=== PATIENT | female | born 1980 | race Caucasian/White ===

== ENCOUNTER 2020-01-10 10:32 | Outpatient (CLI) | payer MEDICAID, SELFPAY ==
--- NOTE | 2020-01-10 10:37 | US_ITS ---
WS: [id number] ULTRASOUND THYROID TECHNIQUE: Ultrasound of the thyroid. CLINICAL INFORMATION: THYROID NODULE COMPARISON: None. FINDINGS: Thyroid: Right and left thyroid lobes are normal in size and echotexture. Complex right thyroid nodule with cystic and solid components and septations. Associated calcificatio ns and vascularity. Complex nodule measures 3.2 x 1.7 x 2.5 cm in the mid thyroid. Right thyroid lobe: 5.7 cm x 2.6 cm x 2.3 cm Left thyroid lobe: 5.2 cm x 1.7 cm x 1.5 cm. Isthmus: 0.5 mm. Cervical lymphadenopathy: None. Incidental tiny colloid cysts within the left thyroid. US/US thyroid [id number] IMPRESSION: 1. Heterogeneous complex nodule in the mid right thyroid with cystic and solid components. Recommend further evaluation with ultrasound-guided FNA/aspiration . 2. Incidental tiny colloid cysts left thyroid.
== END 2020-01-10 10:33 | disposition home or self-care (01) ==
LOC: RAD 10:36
PROVIDERS: PCP Nurse Practitioner Family; Visit Provider Nurse Practitioner Family
DX: E04.1 Nontoxic single thyroid nodule (principal)
CPT/HCPCS: 76536

== ENCOUNTER 2020-01-22 08:25 | Outpatient (CLI) | payer MEDICAID, SELFPAY ==
--- NOTE | 2020-01-22 08:32 | US_ITS ---
WS: [id number] INDICATION: Ultrasound-guided FNA TECHNIQUE: The procedure including risks benefits and complications were discussed with the patient w ho agreed to proceed. Using sterile technique patient was prepped and draped in sterile fashion. Time out was performed. After 1% lidocaine using ultrasound guidance 3 passes with a 25-gauge needle with suction was performed. Pathology was present for slide preparation. No immediate complications US/US biopsy thyroid [id number] IMPRESSION: Uncomplicated ultrasound guided right thyroid FNA
== END 2020-01-22 08:26 | disposition home or self-care (01) ==
LOC: RAD 08:29
PROVIDERS: PCP Nurse Practitioner Family; Visit Provider Nurse Practitioner Family
DX: E04.1 Nontoxic single thyroid nodule (principal)
CPT/HCPCS: 10005; 88173; 88305

== ENCOUNTER 2020-01-30 07:49 | Outpatient (CLI) | payer MEDICAID, SELFPAY ==
--- NOTE | 2020-01-30 | XR_ITS ---
ADDENDUM WS: [id number] Addendum: The clips that are adjacent to the L3 and L4 vertebral body may be ingested or on the patient. No specific imaging studies correlate with the findings from chronic back pain. Usually an MRI of the lumbar spine, CT scan of the lumbar spine and lumbar spine x-rays constitute the initial workup. Addendum Dictated By: Priscilla Dixon MD Addendum Signed By: Priscilla Dixon MD Signed Date/Time: 03/04/20 1410 Addendum Cosigned By: WS: [id number] Scoliosis series, AP and lateral views of the thoracic and lumbar spines, 01/30/2020 Clinical Data: SCOLIOSIS DEFORMITY OF SPINE Comparison: None. Findings: No scoliosis is present. There are no anomalous vertebra. There are no compression fractures. The disc heights are normal. There are clips to the right of the L3 and L4 vertebral bodies from surgery. The bladder is full. XR/XR scoliosis survey [id number] Impression: No scoliosis. Dictated By: Priscilla Dixon MD Signed By: Priscilla Dixon MD Signed Date/Time: 01/30/20 0856 DD/ 0854 MTDD XR/XR scoliosis survey - [id number] Impression: No scoliosis.
--- NOTE | 2020-01-30 08:27 | XR_ITS ---
WS: [id number] Scoliosis series, AP and lateral views of the thoracic and lumbar spines, 01/30/2020 Clinical Data: SCOLIOSIS DEFORMITY OF SPINE Comparison: None. Findings: No scoliosis is present. There are no anomalous vertebra. There are no compression fractures. The dis c heights are normal. There are clips to the right of the L3 and L4 vertebral bodies from surgery. Th e bladder is full.
== END 2020-01-30 07:50 | disposition home or self-care (01) ==
LOC: RADWPI 07:51
PROVIDERS: PCP Nurse Practitioner Family; Visit Provider Nurse Practitioner Family
DX: M41.9 Scoliosis, unspecified (principal)
CPT/HCPCS: 72083